=== PATIENT | male | born 1950 | race Caucasian/White ===

== ENCOUNTER → 2020-02-02 | Outpatient (CLI) | payer MEDICARE, BC ==
--- NOTE | 2020-02-02 16:53 | KCIC ---
STUDY: MRI of the left knee without contrast INDICATION: Left knee pain. COMPARISON: None. TECHNIQUE: Multiplanar MR imaging of the left knee performed without the use of intravenous or intra-articular contrast. FINDINGS: Menisci: No discrete tear. Cruciate ligaments: Intact. Collateral ligaments: Intact. Tendons: Distal quadriceps tendinosis. No high-grade tear. Intact patellar tendon. The additional tendons at the knee are unremarkable. Cartilage: Patellofemoral: No high-grade chondrosis of the patella. Partial thickness chondrosis with possible superimposed full-thickness or near full-thickness fissuring seen at the mid to lower trochlear groove and lower margin of the medial trochlea. Lateral compartment: No high-grade chondrosis. Medial compartment: Either partial thickness chondrosis or artifact at the inner margin of the weightbearing medial tibial plateau such as seen on images 18 and 19 series 8. Bones: No acute fracture or focally aggressive marrow signal abnormality. Miscellaneous: No significant knee joint effusion. Edema of the suprapatellar fat pad favored related to the distal quadriceps tendinosis. Normal TT-TG distance. Unremarkable popliteal fossa soft tissues. Trace edema-like signal at the far anterior/superior aspect of Hoffa's fat below the inferior patellar pole but there is no adjacent marrow or tendon abnormality. IMPRESSION: 1. Intact menisci, cruciate ligaments and collateral ligaments. 2. Distal quadriceps tendinosis without a high-grade tear. Mild edema of the suprapatellar fat pad is favored reactive to this tendinosis. The additional tendons at the knee are unremarkable. 3. 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 Electronically signed by: SHEILA SUNG MD (02/02/2020 4:50 PM) [place] [id number]
--- NOTE | 2020-02-02 17:14 | KCIC ---
EXAM: SKULL 2V 02/02/2020 12:30 PM CLINICAL INDICATION: Pre and post shunt either. COMPARISON: Skull radiograph 02/02/2014 TECHNIQUE: PA and right left lateral views of the skull were obtained at 1240 and 1:45 PM. FINDINGS: Right frontoparietal [employer] shunt catheter tubing is unchanged in position from prior exam and unchanged between the 2 sets of images obtained on today's exam. Tubing appears intact. There is no acute fracture. Paranasal sinuses are clear. IMPRESSION: Unchanged right [employer] shunt catheter tubing. Electronically signed by: Vicky Soto MD (02/02/2020 5:11 PM) [id number]
== END | disposition home or self-care (01) ==
LOC: KCIC MRI 12:25
PROVIDERS: ATTEND Family Medicine
DX: M25.562 Pain in left knee (principal); Z98.2 Presence of cerebrospinal fluid drainage device
CPT/HCPCS: 70250; 73721